=== PATIENT | male | born 1960 | race African-American/Black ===

== ENCOUNTER 2021-04-12 15:56 | Emergency (ER) | payer BC ==
[~2021-04-12] VITALS: Ht 177.8 cm; Wt 109.0 kg
--- NOTE | 2021-04-12 16:45 | EKG ---
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
--- NOTE | 2021-04-12 16:55 | PHYS DOC ---
Past Medical History Past Medical History: Hypertension, Other Additional Past Medical Histor: EPILEPSY Past Surgical History: No Surgical History Smoking Status: Never Smoker Alcohol Use: None Drug Use: None General Adult EDM: Chief Complaint: SEIZURE HPI: HPI: Patient is a 61 year old male with history of epilepsy and hypertension who presents via EMS status post seizure and fall from standing with head trauma and loss of consciousness. Patient has a hematoma over his left eye and a swollen left upper lip. Per EMS, patient seizure was less than 5 minutes. Patient is unsure whether his seizure led to him falling, or the fall and head trauma led to seizure activity. Patient reports medical compliance. He takes Keppra every morning, Zarontin in the afternoon, and Dilantin at night. Today, he has taken his Keppra but due to his visit today, has missed his dose of Zarontin. Patient has been diagnosed with epilepsy since he was 2 years old, with his last seizure being in 2017. Patient has no other complaints at this time. Review of Systems: Review of Systems: Constitutional: Denies fever or chills. Eyes: Denies change in visual acuity. ENT: Denies nasal congestion or sore throat. Respiratory: Denies cough or shortness of breath. Cardiovascular: Denies chest pain or edema. GI: Denies abdominal pain, nausea, vomiting, bloody stools or diarrhea. : Denies dysuria or hematuria. Musculoskeletal: Denies back pain or joint pain. Integument: Denies rash or other skin lesions. Neurologic: See HPI Heart Score: C/O Chest Pain: No Allergies: Allergies: Allergies Coded Allergies Type Severity Reaction Last Updated Verified Iodine and Iodide Containing Produc Allergy Unknown 09/20/15 Yes Physical Exam: PE: Constitutional: Well developed, well nourished, non-toxic appearance. HENT: 3 cm hematoma noted on the left superior lateral aspect of the orbit with central abrasion, left upper lip swollen with ecchymosis, bilateral external ears normal, oropharynx moist, no oral exudates, nose normal. Eyes: PERRLA, EOMI, conjunctiva normal, no discharge, no subconjunctival hemorrhage. Neck: Patient arrives in c-collar. Cardiovascular: Heart rate regular rhythm, no murmur. Lungs & Thorax: Bilateral breath sounds clear to auscultation. Abdomen: Bowel sounds normal, soft, no tenderness, no masses, no pulsatile masses. Skin: Warm, dry, no erythema, no rash. Back: No tenderness, no CVA tenderness. Extremities: No tenderness, no cyanosis, no clubbing, ROM intact, no edema. Neurologic: Alert and oriented x4, no focal deficits noted. Current Patient Data: Vital Signs: Vital Signs Date Time Temp Pulse Resp B/P (MAP) Pulse Ox O2 Delivery O2 Flow Rate FiO2 04/12/21 16:04 98.2 121 20 206/111 (142) 98 Room Air 98.2 EKG: EKG: EKG Interpreted by Dr. Mandel at 1610: Sinus tachycardia 116 bpm and rhythm with no ectopic beats. No concerning ST-T wave changes. LVH. Radiology/Procedures: Radiology/Procedures: Exam: CT head, maxillofacial and cervical spine INDICATION: Head trauma, loss of consciousness TECHNIQUE: Sequential axial images through the head, face and cervical spine were obtained without the administration of IV contrast. Exposure: One or more of the following in the visualized dose reduction techniques were utilized for this examination: 1. Automated exposure control 2. Adjustment of the MA and/or KV according to patient size 3. Use of iterative of reconstructive technique Comparisons: None FINDINGS: Head: No focal parenchymal lesion or hemorrhage is identified. There is no midline shift or sulcal effacement. No acute vascular territory infarction is identified. Tran-white distinction is preserved. The ventricular system is within normal limits without compression hydrocephalus. The basal cisterns are well maintained. Face: Extracranial soft tissue scalp contusion overlying the left superior orbital ridge. Globes intradural contents are normal. The visualized portions of the paranasal sinuses and mastoid air cells are well-pneumatized. No acute fractures. Cervical spine: Vertebral body heights and alignment are well-maintained. Fracture to the cervical spine is not identified. Mild multilevel spondylotic change in cervical spine with degenerative disc disease greatest at C4-C5. Mild bilateral facet arthropathy is also noted in cervical spine. Visualized paraspinal soft tissues are unremarkable. IMPRESSION: 1. No acute intracranial abnormality. 2. Extra cranial soft tissue scalp contusion overlying the left superior orbital ridge without underlying osseous or intracranial abnormality. 3. Negative CT C-spine for acute traumatic injury. Electronically signed by: Vilma Mario MD (04/12/2021 5:13 PM) [facility] Course & Med Decision Making: Course & Med Decision Making Pertinent Labs and Imaging studies reviewed. (See chart for details) Patient presents in c-collar and postictal state. Due to head trauma and loss of consciousness, CT plain head, maxillofacial, C- spine ordered. Imaging is all negative for acute injury. Labetalol ordered for elevated blood pressure. Patient is alert and oriented and has not had any new seizures. On reevaluation, he is resting comfortably. 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 Patient understands and is agreeable to discharge plan. Dragon Disclaimer: Dragon Disclaimer: This electronic medical record was generated, in whole or in part, using a voice recognition dictation system. Departure Departure Impression: Primary Impression: Seizure, epileptic Qualified Codes: G40.802 - Other epilepsy, not intractable, without status epilepticus Additional Impressions: History of epilepsy Traumatic hematoma of face Qualified Codes: S00.83XA - Contusion of other part of head, initial encounter Disposition: HOME / SELF CARE / HOMELESS Condition: STABLE Referrals: ULISES ESTRADA MD (PCP) Patient Instructions: Hematoma, [id number], Seizure, Adult, [id number] Additional Instructions: Your imaging studies today did not reveal any acute fractures or traumatic intracranial changes. You should not drive for 6 months following today's seizure. Additionally, you should follow-up with your neurologist as soon as possible. It is possible that she will make adjustments to your medication regimen. Please return to the emergency department if you develop any new symptoms or have another seizure. BRONWYN LEONARD Apr 12, 2021 16:55
[2021-04-12 17:11] LABS: BASO % 0 % (0-3); EOS # 0.1 x10^3/uL (0.0-0.7); EOS % 2 % (0-3); HEMATOCRIT 40.6 % (39.0-53.0); HEMOGLOBIN 13.2 g/dL (13.0-17.5); LYMPH # 0.7 x10^3/uL (1.0-4.8); LYMPH % 10 % (24-48); MEAN CORPUSCULAR HEMOGLOBIN 24 pg (25-35); MEAN CORPUSCULAR HGB CONC 33 g/dL (31-37); MEAN CORPUSCULAR VOLUME 75 fL (79-100); MONO # 0.4 x10^3/uL (0.0-1.1); MONO % 7 % (0-9); NEUT # 5.4 x10^3/uL (1.8-7.7); NEUT % 81 % (31-73); PLATELET COUNT 175 x10^3/uL (140-400); RED BLOOD COUNT 5.41 x10^6/uL (4.30-5.70); RED CELL DISTRIBUTION WIDTH 15.4 % (11.5-14.5); WHITE BLOOD COUNT 6.7 x10^3/uL (4.0-11.0)
--- NOTE | 2021-04-12 17:16 | RAD ---
Exam: CT head, maxillofacial and cervical spine INDICATION: Head trauma, loss of consciousness TECHNIQUE: Sequential axial images through the head, face and cervical spine were obtained without th e administration of IV contrast. Exposure: One or more of the following in the visualized dose reduction techniques were utilized for this examination: 1. Automated exposure control 2. Adjustment of the MA and/or KV according to patient size 3. Use of iterative of reconstructive technique Comparisons: None FINDINGS: Head: No focal parenchymal lesion or hemorrhage is identified. There is no midline shift or sulcal effaceme nt. No acute vascular territory infarction is identified. Tran-white distinction is preserved. The ventricular system is within normal limits without compression hydrocephalus. The basal cisterns are well maintained. Face: Extracranial soft tissue scalp contusion overlying the left superior orbital ridge. Globes intradural contents are normal. The visualized portions of the paranasal sinuses and mastoid air cells are well -pneumatized. No acute fractures. Cervical spine: Vertebral body heights and alignment are well-maintained. Fracture to the cervical spine is not identified. Mild multilevel spondylotic change in cervical spine with degenerative disc disease greatest at C4-C5 . Mild bilateral facet arthropathy is also noted in cervical spine. Visualized paraspinal soft tissues are unremarkable. IMPRESSION: 1. No acute intracranial abnormality. 2. Extra cranial soft tissue scalp contusion overlying the left superior orbital ridge without under lying osseous or intracranial abnormality. 3. Negative CT C-spine for acute traumatic injury. Electronically signed by: Vilma Mario MD (04/12/2021 5:13 PM) [facility]
[2021-04-12 17:27] LABS: BILIRUBIN,URINE NEGATIVE (NEG); CLARITY,URINE CLEAR; COLOR,URINE YELLOW; NITRITE,URINE NEGATIVE (NEG); PH,URINE 5.5 (<5.0-8.0); PROTEIN,URINE >=300 mg/dL (NEG-TRACE)
[2021-04-12 17:32] LABS: BACTERIA,URINE 0 /HPF (0-FEW); WBC,URINE RARE /HPF (0-4)
[2021-04-12 17:39] LABS: ANION GAP 8 (6-14); BLOOD UREA NITROGEN 16 mg/dL (8-26); BUN/CREATININE RATIO 12 (6-20); CALCIUM 8.4 mg/dL (8.5-10.1); CARBON DIOXIDE 24 mmol/L (21-32); CHLORIDE 105 mmol/L (98-107); CREATININE 1.3 mg/dL (0.7-1.3); GFR 67.9; GLUCOSE 129 mg/dL (70-99); POTASSIUM 3.9 mmol/L (3.5-5.1); SODIUM 137 mmol/L (136-145)
[2021-04-12 17:45] LABS: ALBUMIN 3.1 g/dL (3.4-5.0); ALBUMIN/GLOBULIN RATIO 0.6 (1.0-1.7); ALK PHOS 182 U/L (46-116); ALT (SGPT) 43 U/L (16-63); AST (SGOT) 32 U/L (15-37); PHENY 6.4 mcg/mL (10.0-20.0); TOTAL BILIRUBIN 0.2 mg/dL (0.2-1.0); TOTAL PROTEIN 8.4 g/dL (6.4-8.2)
[2021-04-12] MEDS ORDERED: LABETALOL 20 MG/4 ML DISP.SYRIN. IVP ONE (18:30)
[2021-04-12 18:44] VITALS: BP 169/78
== END 2021-04-12 19:38 | disposition home or self-care (01) ==
LOC: ER 15:56
DX: S00.83XA Contusion of other part of head, initial encounter (principal); G40.802 Other epilepsy, not intractable, without status epilepticus; I10 Essential (primary) hypertension; Z91.041 Radiographic dye allergy status; W18.39XA Other fall on same level, initial encounter; Y93.89 Activity, other specified; Y92.89 Other specified places as the place of occurrence of the external cause; Y99.8 Other external cause status
CPT/HCPCS: 70450; 70486; 72125; 80053; 80177; 80185; 81001; 85025; 93005; 96374; 99285; J3490; 36415